=== PATIENT | female | born 1940 | race Caucasian/White ===

== ENCOUNTER → 2018-04-05 | Outpatient (CLI) | payer OTHER | LOC: RAD 01:32 | DX: Z12.31 Encounter for screening mammogram for malignant neoplasm of breast (principal) ==

== ENCOUNTER → 2019-05-09 | Outpatient (CLI) | payer MEDICARE | LOC: BC 07:55 | DX: Z12.31 Encounter for screening mammogram for malignant neoplasm of breast (principal) ==

== ENCOUNTER → 2020-05-19 | Outpatient (CLI) | payer OTHER | LOC: BC 08:57 | PROVIDERS: ATTEND Family Medicine | DX: Z12.31 Encounter for screening mammogram for malignant neoplasm of breast (principal) ==

== ENCOUNTER → 2021-05-02 | Outpatient (CLI) | payer BC ==
[~2021-05-02] MED LIST: ASPIRIN EC81 M1 PO; CALCIUM500 MG PO; CARVEDILOL25 MG PO; ENTRESTO 49 MG1 EACH PO; GLUCOSAMINE-CH1 EA15 PO; LEVOXYL50 MCG PO; LEVOXYL75 MCG PO; MULTI VITAMIN1 EACH PO; ROSUVASTATIN CA20 MG PO; VITAMIN D325 MC5 PO
== END ==
LOC: LAB 09:18
PROVIDERS: ATTEND Student in an Organized Health Care Education/Training Program
DX: Z20.822 Contact with and (suspected) exposure to COVID-19 (principal)

== ENCOUNTER → 2021-05-04 | Outpatient (CLI) | payer BC ==
[~2021-05-04] VITALS: Ht 167.6 cm; Wt 65.8 kg
--- NOTE | 2021-05-04 15:33 | P ---
[facility] [place] [address] PROCEDURE REPORT Name: IRENE WAY Room #: REG KALPESHYvette Price#: [id number] Admission: 05/04/21 Attend Phys: Yasir Martinez Discharge: Date of : 36 Report #: [id number] THIS REPORT FOR: cc: Avinash Knapp MD,Yasir Hastings MD, MD ~ cc: Avinash Knapp DATE OF SERVICE: 05/04/2021 PROCEDURE PERFORMED: Colonoscopy with biopsies. HISTORY OF PRESENT ILLNESS: The patient is an 80-year-old female who presents today for routine screening colonoscopy. Last colonoscopy was 5 years ago. She does have a family history of colon cancer in her mother. She denies any symptoms. DESCRIPTION OF PROCEDURE: The risks and benefits of the procedure were explained to the patient, those risks including but not limited to bleeding, perforation and the risk of sedation. She understood these risks and gave informed consent. Sedation was given using propofol per anesthesia. Next, a digital rectal exam was initially performed, which was normal. Next, using a standard Olympus colonoscope, the scope was placed in the patient's anus and advanced under direct vision to the cecum. The overall prep was excellent. The cecum and ileocecal valve were normal in appearance. The ascending colon was normal. In the transverse colon, a 4 mm sessile polyp was noted. This was removed with cold forceps, otherwise normal. The descending and sigmoid colon were normal. The rectal mucosa was normal. On retroflexion, no abnormalities were noted. Scope was then withdrawn and the procedure terminated. The patient tolerated the procedure well. IMPRESSION: 1. Small colon polyp. 2. Otherwise, normal colonoscopy. RECOMMENDATIONS: 1. Await biopsy results. 2. Observe at this point. Thank you for allowing me to participate in her care. <ELECTRONICALLY SIGNED> By: Yasir Cortes MD 05/04/21 1533 0931 1223 Yasir Cortes MD /nt
--- NOTE | 2021-05-06 13:08 | PATH ---
[facility] [address] [place] [address] PATHOLOGY RPT PROCEDURE Name: IRENE WAY Room #: REG [facility].#: [id number] Admission: 05/04/21 Date of : 36 Discharge: Report #: [id number] Path Case #: [id number] [facility] Accession Number: [id number] . 01 Material submitted: . colon - TRANSVERSE COLON POLYP. Modifiers: transverse . 01 Clinical history: . FAMILY COLON CA HX . 02 Diagnosis: Transverse colon polyp, polypectomy: - Sessile serrated adenoma/polyp. - Negative for high grade dysplasia or malignancy. (ANK/db; 05/06/2021) [facility] 05/06/2021 1036 Local . 02 Electronically signed: . Teagan Epperson MD, Pathologist NPI- [id number] . 01 Gross description: . The specimen is received in formalin, labeled "Sb, Irene, transverse colon polyp". Received are 5 segments of pale neal tissue ranging in size from 0.2 cm to 0.3 cm in maximum dimensions. The specimen is submitted entirely in cassette A1.([facility]; 05/05/2021) [facility] 05/05/2021 1520 Local . 02 Pathologist provided ICD-10: D12.3 . 02 CPT . 870971 Specimen Comment: A courtesy copy of this report has been sent to [phone] Specimen Comment: [id number] Specimen Comment: Report sent to AND DR ARIZMENDI Performed at: [address], [place] [id number] MD Gabriele Lu MD Phone: [phone] Performed at: [address] [id number] MD Teagan Epperson MD Phone: [phone]
== END ==
LOC: GI 08:13
PROVIDERS: ATTEND Specialist
DX: Z12.11 Encounter for screening for malignant neoplasm of colon (principal); K62.5 Hemorrhage of anus and rectum; K63.89 Other specified diseases of intestine; K64.0 First degree hemorrhoids; I10 Essential (primary) hypertension; E03.9 Hypothyroidism, unspecified; E78.5 Hyperlipidemia, unspecified; Z87.891 Personal history of nicotine dependence; Z80.0 Family history of malignant neoplasm of digestive organs; Z79.899 Other long term (current) drug therapy; Z98.890 Other specified postprocedural states
CPT/HCPCS: 62110; 62900